=== PATIENT | female | born 1985 | race Caucasian/White ===

== ENCOUNTER → 2016-10-13 | Outpatient (CLI) | payer OTHER ==
--- NOTE | 2016-10-13 20:03 | MR ---
EXAMINATION TYPE: MR lumbar spine wo con DATE OF EXAM: 10/13/2016 7:32 PM COMPARISON: NONE HISTORY: Severe Low Back Pain Pain down both legs mostly on Left Multiplanar, MultiSpin echo imaging of the lumbar spine was performed. L1-L2: Normal disc appearance without desiccation. No herniation, protrusion or disc bulging. No ca nal stenosis is present. Foramina are patent bilaterally. L2-L3: Normal disc appearance without desiccation. No herniation, protrusion or disc bulging. No ca nal stenosis is present. Foramina are patent bilaterally. L3 hemangioma noted. L3-L4: Normal disc appearance without desiccation. No herniation, protrusion or disc bulging. No ca nal stenosis is present. Foramina are patent bilaterally. L4-L5: Normal disc appearance without desiccation. No herniation, protrusion or disc bulging. No ca nal stenosis is present. Foramina are patent bilaterally. L5-S1: Mild disc desiccation. Minimal posterior central disc bulge. No herniation protrusion or centr al stenosis. Foramina are patent bilaterally. Lumbar segments are intact. No paraspinal masses are identified. Conus medullaris has a normal appe arance. IMPRESSION: 1. Minimal disc desiccation and disc bulging at L5-S1.
== END | disposition home or self-care (01) ==
LOC: RADMRIMAIN 18:54
PROVIDERS: ATTEND Internal Medicine
DX: M51.27 Other intervertebral disc displacement, lumbosacral region (principal)
CPT/HCPCS: 72148

== ENCOUNTER 2016-10-22 12:38 | Emergency (ER) | payer OTHER ==
[2016-10-22 12:50] VITALS: BP 141/83; PULSE 79; RESP 18; TEMP 97.9
[2016-10-22] MEDS ORDERED: KETOROLAC 60 MG/2 ML VIAL IM STA (13:01)
--- NOTE | 2016-10-22 13:29 | ED ---
Back Pain HPI - General Chief Complaint: Back Pain/Injury Stated Complaint: Back Pain Time Seen by Provider: 10/22/16 12:53 Source: patient, RN notes reviewed, old records reviewed - History of Present Illness Initial Comments: This is a 31 year old female with CC of acute exacerbation of chronic back pain. She reports she had a MRI 1-2 weeks ago, which told her she has disc changes in L5-S1. She reports she has been taking Tramadol, but it has not helped with the Pain. She reports she has a follow up appointment with a neurologist Dr. Joshua next week. She does not have a pain contract. She denies any falls or anything causing worsening back pain. She denies saddle anesthesias , or peripheral paresthesias. Patient has no other associated symptoms. - Related Data Home Medications Medication Instructions Recorded Confirmed Albuterol Sulfate [Proair Hfa] 2 puff INHALATION RT-Q6H PRN 10/22/16 10/22/16 Ibuprofen [Motrin] 1,000 mg PO DAILY PRN 10/22/16 10/22/16 Methocarbamol [Robaxin] 1,500 mg PO HS PRN 10/22/16 10/22/16 Sertraline [Zoloft] 75 mg PO HS 10/22/16 10/22/16 traMADol HCL [Ultram] 50 mg PO DAILY 10/22/16 10/22/16 Previous Rx's Medication Instructions Recorded Acetaminophen-Codeine 300-30mg 1 tab PO Q6H PRN #20 tablet 10/22/16 [Tylenol #3] Allergies Allergy/AdvReac Type Severity Reaction Status Date / Time Penicillins Allergy Rash/Hives Verified 10/22/16 13:16 Review of Systems ROS Statement: Those systems with pertinent positive or pertinent negative responses have been documented in the HPI. ROS Other: All systems not noted in ROS Statement are negative. Past Medical History Past Medical History: No Reported History Additional Past Medical History / Comment(s): sciatica, BULGING LUMBAR DISC L4 AND L5 History of Any Multi-Drug Resistant Organisms: None Reported Additional Past Surgical History / Comment(s): hemorrhoids Past Psychological History: No Psychological Hx Reported Smoking Status: Current every day smoker Past Alcohol Use History: None Reported Past Drug Use History: None Reported General Exam - General Exam Comments Initial Comments: Well appearing 31 year old male. General appearance: alert, in no apparent distress Head exam: Present: atraumatic, normocephalic, normal inspection Eye exam: Present: normal appearance, PERRL, EOMI. Absent: scleral icterus, conjunctival injection, periorbital swelling ENT exam: Present: normal exam, mucous membranes moist Neck exam: Present: normal inspection. Absent: tenderness, meningismus, lymphadenopathy Respiratory exam: Present: normal lung sounds bilaterally. Absent: respiratory distress, wheezes, rales, rhonchi, stridor Cardiovascular Exam: Present: regular rate, normal rhythm, normal heart sounds. Absent: systolic murmur, diastolic murmur, rubs, gallop, clicks GI/Abdominal exam: Present: soft, normal bowel sounds. Absent: distended, tenderness, guarding, rebound, rigid Extremities exam: Present: normal inspection, full ROM, normal capillary refill. Absent: tenderness, pedal edema, joint swelling, calf tenderness Back exam: Present: normal inspection Neurological exam: Present: alert, oriented X3, CN II-XII intact Psychiatric exam: Present: normal affect, normal mood Skin exam: Present: warm, dry, intact, normal color. Absent: rash Course Vital Signs 10/22/16 12:46 Temperature 97.9 F Pulse Rate 79 Respiratory 18 Rate Blood Pressure 141/83 O2 Sat by Pulse 100 Oximetry Medical Decision Making - Medical Decision Making This is a 31 year old female with CC of acute exacerbation of chronic back pain. She reports she had a MRI 1-2 weeks ago, which told her she has disc changes in L5-S1. She reports she has been taking Tramadol, but it has not helped with the Pain. She reports she has a follow up appointment with a neurologist Dr. Joshua next week. She does not have a pain contract. She denies any falls or anything causing worsening back pain. She denies saddle anesthesias , or peripheral paresthesias. Patient has no other associated symptoms. Patient declines x-rays, and discussed it is unnecessary for them at this time. Patient given IM toradol. She reports she is feeling somewhat better. Patient discharged with short prescription of tylenol 3, and advised to take those with prescription of muscle relaxer at home. Patient agrees with treatment plan and will comply. Disposition Clinical Impression: Acute exacerbation of chronic low back pain Disposition: HOME SELF-CARE Condition: Good Instructions: Acute Low Back Pain (ED) Additional Instructions: Past rest and put ice and heat over the lower back. Take the medications as prescribed. Follow-up with primary care physician as well as your scheduled neurologist appointment. Return to the emergency department if any alarming signs or symptoms occur. Prescriptions: Acetaminophen-Codeine 300-30mg [Tylenol #3] 1 tab PO Q6H PRN #20 tablet PRN Reason: Pain Referrals: Jackson Coronado MD [Primary Care Provider] - 1-2 days Time of Disposition: 13:27
== END 2016-10-22 13:39 | disposition home or self-care (01) ==
LOC: EC 12:38
DX: G89.29 Other chronic pain (principal); M54.5 Low back pain; F17.200 Nicotine dependence, unspecified, uncomplicated; Z79.899 Other long term (current) drug therapy; Z88.0 Allergy status to penicillin
CPT/HCPCS: 99283; 96372; J1885

== ENCOUNTER 2017-02-02 13:38 | Emergency (ER) | payer OTHER ==
[2017-02-02 13:45] VITALS: BP 148/82; PULSE 86; RESP 18; TEMP 97.1
--- NOTE | 2017-02-02 14:06 | ED ---
ENT HPI - General Chief complaint: Dental/Oral Stated complaint: Dental Pain Time Seen by Provider: 02/02/17 13:49 Source: patient, RN notes reviewed Mode of arrival: ambulatory Limitations: no limitations - History of Present Illness Initial comments: This is a 31-year-old female who presents to the emergency department with chief complaint of dental pain. Patient states that she has been experiencing dental pain since the beginning of December. Patient states at that time she was seen at the [facility] where she was prescribed clindamycin 150 mg 3 times a day. Patient states that since last Tuesday she has taken a whole bottle of ibuprofen for the pain. Patient states that she has been dealing with dental pain OR life but does not have dental insurance was unable to see a dentist. Patient states that she has been on clindamycin in the past and it usually resolved her dental pain. Denies fever, chills, chest pain, shortness of breath, abdominal pain, nausea or vomiting, constipation or diarrhea, dysuria or hematuria, numbness or tingling, headache or vision changes. - Related Data Home Medications Medication Instructions Recorded Confirmed Albuterol Sulfate [Proair Hfa] 2 puff INHALATION RT-Q6H PRN 10/22/16 10/22/16 Ibuprofen [Motrin] 1,000 mg PO DAILY PRN 10/22/16 10/22/16 Methocarbamol [Robaxin] 1,500 mg PO HS PRN 10/22/16 10/22/16 Sertraline [Zoloft] 75 mg PO HS 10/22/16 10/22/16 traMADol HCL [Ultram] 50 mg PO DAILY 10/22/16 10/22/16 Previous Rx's Medication Instructions Recorded Acetaminophen-Codeine 300-30mg 1 tab PO Q6H PRN #20 tablet 10/22/16 [Tylenol #3] Acetaminophen-Codeine 300-30mg 1 tab PO Q4H PRN #12 tablet 02/02/17 [Tylenol #3] Clindamycin [Cleocin] 450 mg PO TID #90 cap 02/02/17 Allergies Allergy/AdvReac Type Severity Reaction Status Date / Time Penicillins Allergy Rash/Hives Verified 02/02/17 13:45 Review of Systems ROS Statement: Those systems with pertinent positive or pertinent negative responses have been documented in the HPI. ROS Other: All systems not noted in ROS Statement are negative. Past Medical History Past Medical History: No Reported History Additional Past Medical History / Comment(s): sciatica, BULGING LUMBAR DISC L4 AND L5 History of Any Multi-Drug Resistant Organisms: None Reported Additional Past Surgical History / Comment(s): hemorrhoids Past Psychological History: Depression Smoking Status: Current every day smoker Past Alcohol Use History: None Reported Past Drug Use History: None Reported General Exam - General Exam Comments Initial Comments: General: Awake and alert, well-developed; in no apparent distress. HEENT: Head atraumatic, normocephalic. Pupils are equal, round and reactive to light. Extraocular movements intact. Oropharynx moist without erythema or exudate. Poor dentition with multiple teeth missing. There is tenderness on palpation of upper right gum line where molars #2-3 are missing. Neck: Supple. Normal ROM. Cardiovascular: Regular rate and rhythm. No murmurs, rubs or gallops. Chest symmetrical. Respiratory: Lungs clear to auscultation bilaterally. No wheezes, rales or rhonchi. Normal respiratory effort with no use of accessory muscles. Skin: [place], warm and dry without rashes or lesions. Neurological: Alert and oriented x3. CN II-XII grossly intact. Speech is fluent and answers are appropriate. No focal neuro deficits. Psychiatric: Normal mood and affect. No overt signs of depression or anxiety noted. Limitations: no limitations Course Vital Signs 02/02/17 13:42 Temperature 97.1 F L Pulse Rate 86 Respiratory 18 Rate Blood Pressure 148/82 O2 Sat by Pulse 99 Oximetry Medical Decision Making - Medical Decision Making This is a 31-year-old female who presents with dental pain. Patient states she has been experiencing dental pain her entire life and has had a flare-up since the beginning of December. Patient states that she was previously on clindamycin at the beginning of December and that she was taking a lower dose than normal for her. She'll be discharged home with a prescription of a higher dose clindamycin. She has been taking excessive amounts of ibuprofen so patient also received a prescription for Tylenol with Codeine. She is in no acute distress at this time. She is in agreement to the plan and voices understanding. All questions were answered. Disposition Clinical Impression: Toothache Disposition: HOME SELF-CARE Condition: Good Instructions: Toothache (ED) Additional Instructions: Please take medications as prescribed. Please follow up with primary care provider within 1-2 days. Return to emergency department if symptoms should worsen or any concerns arise. Prescriptions: Acetaminophen-Codeine 300-30mg [Tylenol #3] 1 tab PO Q4H PRN #12 tablet PRN Reason: Pain Clindamycin [Cleocin] 450 mg PO TID #90 cap Referrals: Jackson Coronado MD [Primary Care Provider] - 1-2 days Time of Disposition: 14:18
== END 2017-02-02 14:11 | disposition home or self-care (01) ==
LOC: EC 13:38
DX: K08.89 Other specified disorders of teeth and supporting structures (principal); F32.9 Major depressive disorder, single episode, unspecified; M51.16 Intervertebral disc disorders with radiculopathy, lumbar region; F17.200 Nicotine dependence, unspecified, uncomplicated; Z88.0 Allergy status to penicillin; Z79.891 Long term (current) use of opiate analgesic; Z79.899 Other long term (current) drug therapy
CPT/HCPCS: 99282

== ENCOUNTER → 2017-11-04 | Outpatient (CLI) | payer OTHER ==
--- NOTE | 2017-11-08 12:36 | MM ---
Reason for exam: clinical finding. Last mammogram was performed 6 years and 4 months ago. History: Family history of breast cancer in mother at age 50. Physical Findings: Nurse Summary: Less than 1 cm lump at 5 o'clock in the left breast. [facility] Diagnostic Mammo w CAD LENO Bilateral CC and MLO view(s) were taken. Prior study comparison: July 16, 2011, bilateral mammogram. The breast tissue is heterogeneously dense. This may lower the sensitivity of mammography. There is a mass left upper outer quadrant posterior depth. These results were verbally communicated with the patient and result sheet given to the patient on 11/04/17. ASSESSMENT: Incomplete: need additional imaging evaluation, BI-RAD 0 RECOMMENDATION: Ultrasound of the left breast.
--- NOTE | 2017-11-08 12:47 | USB ---
Reason for exam: additional evaluation requested from abnormal screening. History: Family history of breast cancer in mother at age 50. US Breast Limited LT Left limited breast ultrasound including focal area of concern, retroareolar and axilla demonstrates a 0.3 x 0.2 x 0.2 cm oval mixed lesion at 1 o'clock , a 0.7 x 0.7 x 0.4 cm oval cystic lesion at 2 o'clock and a 0.5 x 0.3 x 0.3 cm oval complex cystic lesion at 3 o'clock, all appear benign. At the 3 o'clock position is a 0..4 x 0.5 x 0.3 cm oval mixed vascular lesion that appears more solid with vascular flow. These results were verbally communicated with the patient and result sheet given to the patient on 11/04/17. ASSESSMENT: Suspicious, BI-RAD 4 RECOMMENDATION: Ultrasound core biopsy of the left breast. Called with mammographic findings and has scheduled an appointment for the patient for12/01/17 at 10:[address] Perez. PRELIMINARY REPORT CALLED AND FAXED TO DR. PEREZ ON 11/04/17.
== END | disposition home or self-care (01) ==
LOC: RADMAMWWP 07:59
PROVIDERS: ATTEND Pediatrics
DX: R92.8 Other abnormal and inconclusive findings on diagnostic imaging of breast (principal); N63.0 Unspecified lump in unspecified breast
CPT/HCPCS: 77066

== ENCOUNTER → 2017-11-16 | Day surgery (SDC) | payer OTHER ==
[2017-11-16 11:35] VITALS: RESP 16; BMI 34.1
[2017-11-16 14:08] VITALS: BP 122/75; PULSE 69; TEMP 98.3
--- NOTE | 2017-11-16 17:10 | USB ---
EXAMINATION TYPE: US biopsy breast VAD LT DATE OF EXAM: 11/16/2017 CLINICAL HISTORY: R92.8 Abnormal Mammogram. TECHNIQUE: Ultrasound guided core biopsy of left breast. COMPARISON: 11/04/2017 FINDINGS: The procedure of ultrasound guided core biopsy was explained to the patient. Benefits, alternatives, and risks were discussed. An informed consent was obtained. Timeout was performed. The patient was placed in supine positioning for imaging and for the procedure. The overlying skin was prepped and draped in usual sterile fashion. Lidocaine buffered with bicarbonate was used as anesthetic into the skin and subcutaneous tissue up to area of concern in the left breast. A dena was made with surgical scalpel. Under ultrasound guidance, a 12-gauge vacuum assisted biopsy gun device was used to obtain 5 core samples. Following this, a biopsy clip was left in biopsy location. The patient tolerated the procedure well without any immediate complication. The patient was kept in the radiology department for short stay after the procedure and then discharged home in stable condition. Post procedure mammogram is obtained. Surgical clip is within the left breast. Discharge instructions were discussed patient. Patient physician for results. IMPRESSION: 1. Successful ultrasound-guided core biopsy left breast 3:00 position lesion. Recommendations: 1. Recommendations are pending pathology results. Pathology Results: Benign BREAST, LEFT, THREE O'CLOCK, CORE BIOPSY: Fibroadenoma/fibroadenomatoid hyperplasia and background fibrocystic changes including cysts, fibrosis and sclerosing adenosis with microcalcifications. Recommendation Follow up mammogram of the left breast in 6 months. TONY
== END ==
LOC: RADUSWWP 11:05
PROVIDERS: ATTEND Surgery
DX: D24.2 Benign neoplasm of left breast (principal); N62 Hypertrophy of breast; N60.12 Diffuse cystic mastopathy of left breast; N60.22 Fibroadenosis of left breast; R92.8 Other abnormal and inconclusive findings on diagnostic imaging of breast; R92.0 Mammographic microcalcification found on diagnostic imaging of breast; Z88.0 Allergy status to penicillin
CPT/HCPCS: 88305; 77065; 19083; A4648; J2001

== ENCOUNTER 2022-02-20 18:10 | Emergency (ER) | payer OTHER ==
[2022-02-20] MEDS ORDERED: KETOROLAC 15 MG/ML 1 ML VIAL IM STA (18:39)
[2022-02-20] MEDS ORDERED: CYCLOBENZAPRINE 10 MG TAB PO STA (18:39)
--- NOTE | 2022-02-20 18:49 | ED ---
Upper Extremity HPI - General Chief Complaint: Extremity Injury, Upper Stated Complaint: Shoulder Pain Time Seen by Provider: 02/20/22 18:28 Source: patient, RN notes reviewed, old records reviewed Mode of arrival: ambulatory Limitations: no limitations - History of Present Illness Initial Comments: This is a well-appearing 36-year-old female that presents to the emergency room with complaints of left shoulder pain radiating down her arm and to the side of her neck. She has had this pain for over a month. She states she woke up with the pain after sleeping on that side about a month ago. She has seen her primary care doctor and was prescribed Ultram and Robaxin for she is out of this medication and needs to make another appointment to get a refill. She has been going to a chiropractor for adjustments that she also has chronic back pain. States that seen her chiropractor yesterday. Patient denies any injuries. Patient has seen Dr. Sams in the past for pain management but will not return to him. MD Complaint: Injury to:: left, shoulder -: month(s) (1) Other Injuries: none Severity scale (1-10): 9 Improves With: none Worsens With: movement of extremity Context: other (woke up with pain a month ago) Treatments Prior to Arrival: other (Tramadol, Robaxin, Motrin, chiropractor yesterday) - Related Data Home Medications Medication Instructions Recorded Confirmed Albuterol Sulfate [Proair Hfa] 2 puff INHALATION RT-Q6H PRN 10/22/16 11/16/17 Ibuprofen [Motrin] 1,000 mg PO DAILY PRN 10/22/16 11/16/17 DULoxetine HCL [Cymbalta] 20 mg PO DAILY 11/11/17 11/16/17 Gabapentin [Neurontin] 300 mg PO DAILY 11/11/17 11/16/17 NIFEdipine [Procardia XL] 30 mg PO DAILY 11/11/17 11/16/17 Previous Rx's Medication Instructions Recorded Cyclobenzaprine [Flexeril] 10 mg PO TID PRN #15 tab 02/20/22 Allergies Allergy/AdvReac Type Severity Reaction Status Date / Time Penicillins Allergy Rash/Hives Verified 02/20/22 18:26 Review of Systems ROS Statement: Those systems with pertinent positive or pertinent negative responses have been documented in the HPI. ROS Other: All systems not noted in ROS Statement are negative. Past Medical History Past Medical History: No Reported History Additional Past Medical History / Comment(s): sciatica, BULGING LUMBAR DISC L4 AND L5, Raynaud syndrome History of Any Multi-Drug Resistant Organisms: None Reported Additional Past Surgical History / Comment(s): hemorrhoids, mole removal from groin- benign Past Anesthesia/Blood Transfusion Reactions: No Reported Reaction Past Psychological History: Anxiety, Depression Smoking Status: Never smoker Past Alcohol Use History: None Reported Past Drug Use History: None Reported General Exam Limitations: no limitations General appearance: alert, in no apparent distress Head exam: Present: atraumatic, normocephalic, normal inspection Eye exam: Absent: scleral icterus, conjunctival injection, periorbital swelling, periorbital tenderness Neck exam: Present: normal inspection, tenderness (Left sternocleidomastoid), full ROM. Absent: meningismus, lymphadenopathy, thyromegaly Respiratory exam: Absent: respiratory distress, accessory muscle use Cardiovascular Exam: Present: regular rate Left Shoulder Exam: Present: full ROM, tenderness, other (Negative Apley scratch test, no pain with supination or pronation). Absent: swelling, deformity, crepitus, dislocation, tenderness over AC joint Upper Arm exam: Present: normal inspection, full ROM. Absent: tenderness Elbow exam: Present: normal inspection, full ROM. Absent: tenderness Forearm Wrist exam: Present: normal inspection, full ROM. Absent: tenderness Vascular: Present: normal capillary refill. Absent: vascular compromise Neurological exam: Present: alert, oriented X3 Psychiatric exam: Present: normal affect, normal mood Skin exam: Present: warm, dry, normal color. Absent: cyanosis, diaphoretic, petechiae, pallor Course Vital Signs 02/20/22 18:23 Temperature 97.9 F Pulse Rate 98 Respiratory 22 Rate Blood Pressure 157/91 O2 Sat by Pulse 97 Oximetry Medical Decision Making - Medical Decision Making Patient presents with left shoulder pain for one month after waking up with pain. Denies any injury. Has been seeing a chiropractor, last visit yesterday. Has seen her primary care doctor who prescribed her tramadol and Robaxin which she has been taking in addition to motrin for chronic back pain. Patient has full range of motion. Denies any fevers. No trauma. History of degenerative disease and sciatica. No pain with abduction. No pain with supination or pronation. Negative Apley scratch test. She was given Flexeril and Toradol in the emergency room. Directed to continue Tylenol or Motrin for her pain. She was written a prescription for Flexeril. I encouraged her to discuss pain management options with her primary care doctor. She was given a referral to orthopedics for shoulder pain. Case discussed with Dr. Betancourt Disposition Clinical Impression: Left shoulder pain Disposition: HOME SELF-CARE Condition: Good Instructions (If sedation given, give patient instructions): Shoulder Pain (ED) Additional Instructions: Continue Tylenol and Motrin for pain. You can also take Flexeril as prescribed. You can also use topical pain medications like icy hot or capsaicin creams. Follow up with orthopedics for continuation of care. Prescriptions: Cyclobenzaprine [Flexeril] 10 mg PO TID PRN #15 tab PRN Reason: Muscle Spasm Is patient prescribed a controlled substance at d/c from ED?: No Referrals: Nonstaff,Physician [Primary Care Provider] - 1-2 days Alok Olivas MD [Medical Doctor] - 1-2 days Time of Disposition: 18:45
[2022-02-20 19:21] VITALS: BP 138/98; PULSE 94; RESP 15; TEMP 97.8
== END 2022-02-20 19:20 | disposition home or self-care (01) ==
LOC: EC 18:10
DX: M25.512 Pain in left shoulder (principal); F41.9 Anxiety disorder, unspecified; F32.A Depression, unspecified; Z88.0 Allergy status to penicillin
CPT/HCPCS: 99283; 96372; J1885

== ENCOUNTER → 2022-04-01 | Outpatient (CLI) | payer OTHER ==
--- NOTE | 2022-04-02 07:20 | XR ---
EXAMINATION TYPE: XR knee complete RT DATE OF EXAM: 04/01/2022 6:19 PM INDICATION: Patient age:Female; 36 years old; Reason for study: M25.561 Pain in Rt Knee; [facility]. COMPARISON: None. TECHNIQUE: The Right knee(s) was examined in 3 projections. Frontal, lateral and oblique. FINDINGS: No evidence of any acute osseous pathology, joint space narrowing, soft tissue swelling, or joint effusion is noted. IMPRESSION: No acute osseous pathology.
--- NOTE | 2022-04-02 07:21 | XR ---
EXAMINATION TYPE: XR cervical spine comp DATE OF EXAM: 04/01/2022 6:19 PM INDICATION: Patient age:Female; 36 years old; Reason for study: M54.2 Cervicalgia; [facility]. COMPARISON: None TECHNIQUE: The cervical spine was imaged in frontal, lateral, bilateral oblique, swimmer's and odonto id projections. FINDINGS: The osseous structures show normal alignment without evidence of an acute fracture. The intervertebra l disk spaces are preserved. Pedicles are intact. Soft tissues are within normal limits. The odonto id appears intact. IMPRESSION: No fracture or dislocation.
== END | disposition home or self-care (01) ==
LOC: RADXRMAIN 16:08
PROVIDERS: ATTEND Family Medicine
DX: M54.2 Cervicalgia (principal); M25.512 Pain in left shoulder; M25.561 Pain in right knee; R20.2 Paresthesia of skin
CPT/HCPCS: 72050

== ENCOUNTER 2022-09-25 10:38 | Emergency (ER) | payer OTHER ==
[2022-09-25 10:53] VITALS: RESP 18; TEMP 98
[2022-09-25] MEDS ORDERED: KETOROLAC 15 MG/ML 1 ML VIAL IM STA (11:12)
[2022-09-25] MEDS ORDERED: ORPHENADRINE 30 MG/ML 2 ML VIAL IM STA (11:12)
--- NOTE | 2022-09-25 11:20 | ED ---
Extremity Problem HPI - General Chief complaint: Extremity Problem,Nontraumatic Stated complaint: Left shoulder pain Time Seen by Provider: 09/25/22 11:03 Source: patient, RN notes reviewed Mode of arrival: ambulatory Limitations: no limitations - History of Present Illness Initial comments: Patient is a 37-year-old female presenting emergency room complaints of left shoulder pain ongoing since December of last year. She reports that she saw her primary care provider regarding this and has had x-rays but no other imaging or referral is completed. She denies any trauma at the time of the pain initiation or since her imaging. These x-rays were completed here at this facility in May of this year. She reports that she is unable to get a hold of her primary care provider to provide her with any medications for the pain which has been intensifying recently. She has taken Aleve earlier today without any relief in pain. She also notes that she ran out of her Effexor and her primary care provider out of town and did not send in a refill prior to leaving town and is requesting a few days of this medication as well. She reports full but p ainful range of motion. She denies any popping or locking redness or swelling in her joint. She denies any other complaints or concerns including any weakness, numbness and tingling, fevers or chills. She has a past medical history in addition to her depression anxiety and chronic shoulder pain of a chronic back pain with L4-L5 herniated disc, sciatica and raynaud's phenomenon. - Related Data Home Medications Medication Instructions Recorded Confirmed Albuterol Sulfate [Proair Hfa] 2 puff INHALATION RT-Q6H PRN 10/22/16 11/16/17 Ibuprofen [Motrin] 1,000 mg PO DAILY PRN 10/22/16 11/16/17 DULoxetine HCL [Cymbalta] 20 mg PO DAILY 11/11/17 11/16/17 Gabapentin [Neurontin] 300 mg PO DAILY 11/11/17 11/16/17 NIFEdipine [Procardia XL] 30 mg PO DAILY 11/11/17 11/16/17 Previous Rx's Medication Instructions Recorded Cyclobenzaprine [Flexeril] 10 mg PO TID PRN #15 tab 02/20/22 Cyclobenzaprine [Flexeril] 10 mg PO TID PRN #15 tab 05/24/22 Ibuprofen [Motrin] 600 mg PO Q8HR PRN #30 tab 05/24/22 Cyclobenzaprine HCl 10 mg PO TID PRN 7 Days #21 tab 09/25/22 Ibuprofen [Motrin] 800 mg PO Q8H PRN 7 Days #21 tab 09/25/22 Venlafaxine HCl [Effexor XR] 225 mg PO DAILY 7 Days #7 tab 09/25/22 Allergies Allergy/AdvReac Type Severity Reaction Status Date / Time Penicillins Allergy Rash/Hives Verified 09/25/22 10:53 Review of Systems ROS Statement: Those systems with pertinent positive or pertinent negative responses have been documented in the HPI. ROS Other: All systems not noted in ROS Statement are negative. Past Medical History Additional Past Medical History / Comment(s): sciatica, BULGING LUMBAR DISC L4 AND L5, Raynaud syndrome History of Any Multi-Drug Resistant Organisms: None Reported Additional Past Surgical History / Comment(s): hemorrhoids, mole removal from groin- benign, L breast biopsy Past Anesthesia/Blood Transfusion Reactions: No Reported Reaction Past Psychological History: Anxiety, Depression Smoking Status: Vaper Past Alcohol Use History: None Reported Past Drug Use History: None Reported General Exam Limitations: no limitations General appearance: alert, in no apparent distress, obese Head exam: Present: atraumatic, normocephalic, normal inspection Eye exam: Present: normal appearance, PERRL, EOMI. Absent: scleral icterus, conjunctival injection, periorbital swelling ENT exam: Present: mucous membranes moist Expanded Mouth exam: Present: normal external inspection Teeth exam: Present: dental caries Neck exam: Present: normal inspection, full ROM. Absent: tenderness Respiratory exam: Absent: respiratory distress, accessory muscle use Cardiovascular Exam: Present: regular rate GI/Abdominal exam: Absent: distended Left Shoulder Exam: Present: tenderness. Absent: full ROM, swelling, abrasion, laceration, ecchymosis, deformity, crepitus, dislocation, tenderness over AC joint Vascular: Absent: vascular compromise Back exam: Present: normal inspection, full ROM Neurological exam: Present: alert, oriented X3, CN II-XII intact Psychiatric exam: Present: normal affect, normal mood Skin exam: Present: warm, dry, intact, normal color. Absent: rash Course Vital Signs 07/08/23 07/08/23 10:51 12:51 Temperature 98 F Pulse Rate 98 73 Respiratory 18 18 Rate Blood Pressure 155/107 143/90 O2 Sat by Pulse 98 97 Oximetry Medical Decision Making - Medical Decision Making Was pt. sent in by a medical professional or institution ([facility], SOFTWARE QUALITY AUTOMATION ENGINEER, urgent care, hospital, or shelter...) When possible be specific @ -No Did you speak to anyone other than the patient for history (EMS, parent, family, police, friend...)? What history was obtained from this source @ -No Did you review nursing and triage notes (agree or disagree)? Why? @ -I reviewed and agree with nursing and triage notes except pain ongoing for 10 months not 2 months; pain since December 2021. Were old charts reviewed (outside hosp., previous admission, EMS record, old EKG, old radiological studies, urgent care reports/EKG's, shelter records)? Report findings @ -Yes, I reviewed imaging of left shoulder completed May 2022 which showed no acute osseous pathology and preserved joint spaces. Differential Diagnosis (chest pain, altered mental status, abdominal pain women, abdominal pain men, vaginal bleeding, weakness, fever, dyspnea, syncope, he adache, dizziness, GI bleed, back pain, seizure, CVA, palpatations, mental health, musculoskeletal)? @ -Differential Musculoskeletal Muscular strain, contusion, ligament sprain, fracture, arthritis, septic arthritis, bursitis, cellulitis, muscle spasm, nerve compression, DVT, arterial occlusion, herpes zoster, electrolyte abnormality, tumor.... This is not meant to be in all inclusive list EKG interpreted by me (3pts min.). @ -None done X-rays interpreted by me (1pt min.). @ -None done CT interpreted by me (1pt min.). @ -None done U/S interpreted by me (1pt. min.). @ -None done What testing was considered but not performed or refused? (CT, X-rays, U/S, labs)? Why? @ -None What meds were considered but not given or refused? Why? @ -None Did you discuss the management of the patient with other professionals (professionals i.e. [facility], SOFTWARE QUALITY AUTOMATION ENGINEER, lab, RT, psych nurse, aids social worker, department store general manager, teacher, radio division officer, rn field case manager)? Give summary @ -No Was smoking cessation discussed for >3mins.? @ -No Was critical care preformed (if so, how long)? @ -No Were there social determinants of health that impacted care today? How? (Homelessness, low income, unemployed, alcoholism, drug addiction, transportation, low edu. Level, literacy, decrease access to med. care, skilled nursing, rehab)? @ -No Was there de-escalation of care discussed even if they declined (Discuss DNR or withdrawal of care, Hospice)? DNR status @ -No What co-morbidities impacted this encounter? (DM, HTN, Smoking, COPD, CAD, Cancer, CVA, ARF, Chemo, Hep., AIDS, mental health diagnosis, sleep apnea, morbid obesity)? @ -Known chronic shoulder pain. Was patient admitted / discharged? Hospital course, mention meds given and route, prescriptions, significant lab abnormalities, going to OR and other pertinent info. @ -37-year-old female presenting with acute on chronic left shoulder pain without any trauma, weakness or radiculopathy. No indication for diagnostic imaging or laboratory studies will give IM Toradol and IM Norflex and monitor response. Pain improved with Toradol and Norflex. Patient reports and able to tolerate oral Toradol; tolerates high-dose ibuprofen well. Will discharge on Motrin 800 along with Flexeril as a muscle relaxer. Also needs a short refill of her Effexor at this time as well due to her provider being unavailable to refill her prescription. She seeks 225 mg capsules and typically takes 175 mg and 1 150 mg capsule. She reports that she has 150 mg capsules available at home will attempt to prescribe 225mg and not not available at her pharmacy will give 75 mg 1 week supply. Advised gentle range of motion as tolerated, application of heat or ice, avoidance of heavy lifting and excessive repetitive motions. Encourage follow-up with primary care provider and orthopedist. Advised no use of other NSAIDs while utilizing Motrin 800. Encouraged use of kinetic tape to the shoulder to help support shoulder movements. Questions and concerns answered. Return parameters to the emergency room discussed. Will discharge home in stable condition with prescription for Motrin and Flexeril to utilize as needed for acute on chronic left shoulder pain advising follow-up with primary care provider and orthopedist. Undiagnosed new problem with uncertain prognosis? @ -No Drug Therapy requiring intensive monitoring for toxicity (Heparin, Nitro, Insulin, Cardizem)? @ -No Were any procedures done? @ -No Diagnosis/symptom? @ -Left shoulder pain Acute, or Chronic, or Acute on Chronic? @ -Acute on chronic Uncomplicated (without systemic symptoms) or Complicated (systemic symptoms)? @ -default Side effects of treatment? @ -No Exacerbation, Progression, or Severe Exacerbation? @ -No Poses a threat to life or bodily function? How? (Chest pain, [place], [place], pneumonia, PE, COPD, DKA, ARF, appy, cholecystitis, CVA, Diverticulitis, Homicidal, Suicidal, threat to staff... and all critical care pts) @ -No Diagnosis/symptom? @ -Encounter for medication refill Acute, or Chronic, or Acute on Chronic? @ -Acute Uncomplicated (without systemic symptoms) or Complicated (systemic symptoms)? @ -Uncomplicated Side effects of treatment? @ -None Exacerbation, Progression, or Severe Exacerbation] @ -No Poses a threat to life or bodily function? @ -No. Case discussed with Dr. Mooney. Disposition Clinical Impression: Left shoulder pain, Encounter for medication refill Disposition: HOME SELF-CARE Condition: Stable Additional Instructions: Utilize ibuprofen prescription and Flexeril prescription for pain and muscle spasms as needed. Do not take other [id number] NSAIDs with prescription strength ibuprofen. Do not drive or operate machinery and see no how oral muscle relaxer will affect you. Please follow-up with orthopedist regarding your chronic left shoulder pain information regarding on-call orthopedist has been provided. Gentle range of motion as tolerated encouraged. Avoid heavy lifting. Use of kinetic tape to the shoulder may help relieve pain. Application of alt ernating heat and ice is recommended. Please return to the Emergency Department if symptoms worsen or any other concerns. Prescriptions: Cyclobenzaprine HCl 10 mg PO TID PRN 7 Days #21 tab PRN Reason: Spasms Venlafaxine HCl [Effexor XR] 225 mg PO DAILY 7 Days #7 tab Ibuprofen [Motrin] 800 mg PO Q8H PRN 7 Days #21 tab PRN Reason: Pain Is patient prescribed a controlled substance at d/c from ED?: No Referrals: Johanne Gray MD [Primary Care Provider] - 1-2 days Ty Rodriguez MD [STAFF PHYSICIAN] - 1-2 days Time of Disposition: 12:31
[2022-09-25 12:55] VITALS: BP 143/90; PULSE 73
== END 2022-09-25 12:57 | disposition home or self-care (01) ==
LOC: EC 10:38
DX: Z76.0 Encounter for issue of repeat prescription (principal); M25.512 Pain in left shoulder; F41.9 Anxiety disorder, unspecified; F32.A Depression, unspecified; F17.290 Nicotine dependence, other tobacco product, uncomplicated; Z88.0 Allergy status to penicillin; Z79.899 Other long term (current) drug therapy
CPT/HCPCS: 99283; 96372 ×2; J2360; J1885

== ENCOUNTER 2023-08-22 11:07 | Emergency (ER) | payer OTHER ==
--- NOTE | 2023-08-22 11:44 | ED ---
ENT HPI - General Chief complaint: Dental/Oral Stated complaint: Dental issue Time Seen by Provider: 08/22/23 11:27 Source: patient, RN notes reviewed Mode of arrival: ambulatory Limitations: no limitations - History of Present Illness Initial comments: 38-year-old female presents emergency department complaint of right-sided dental pain. Patient states started days ago states now swollen more painful she states she is tried [id number] pain medications with no relief. She states that she has poor dentition. Denies any fevers. Patient presented complaints. - Related Data Home Medications Medication Instructions Recorded Confirmed Albuterol Sulfate [Proair Hfa] 2 puff INHALATION RT-Q6H PRN 10/22/16 11/16/17 Ibuprofen [Motrin] 1,000 mg PO DAILY PRN 10/22/16 11/16/17 DULoxetine HCL [Cymbalta] 20 mg PO DAILY 11/11/17 11/16/17 Gabapentin [Neurontin] 300 mg PO DAILY 11/11/17 11/16/17 NIFEdipine [Procardia XL] 30 mg PO DAILY 11/11/17 11/16/17 Previous Rx's Medication Instructions Recorded Cyclobenzaprine [Flexeril] 10 mg PO TID PRN #15 tab 02/20/22 Cyclobenzaprine [Flexeril] 10 mg PO TID PRN #15 tab 05/24/22 Ibuprofen [Motrin] 600 mg PO Q8HR PRN #30 tab 05/24/22 Cyclobenzaprine HCl 10 mg PO TID PRN 7 Days #21 tab 09/25/22 Ibuprofen [Motrin] 800 mg PO Q8H PRN 7 Days #21 tab 09/25/22 Venlafaxine HCl [Effexor XR] 225 mg PO DAILY 7 Days #7 tab 09/25/22 clindamycin HCL 300 mg PO QID #40 cap 08/22/23 Allergies Allergy/AdvReac Type Severity Reaction Status Date / Time Penicillins Allergy Rash/Hives Verified 08/22/23 11:12 Review of Systems ROS Statement: Those systems with pertinent positive or pertinent negative responses have been documented in the HPI. ROS Other: All systems not noted in ROS Statement are negative. Past Medical History Past Medical History: No Reported History Additional Past Medical History / Comment(s): sciatica, BULGING LUMBAR DISC L4 AND L5, Raynaud syndrome History of Any Multi-Drug Resistant Organisms: None Reported Additional Past Surgical History / Comment(s): hemorrhoids, mole removal from groin- benign, L breast biopsy Past Anesthesia/Blood Transfusion Reactions: No Reported Reaction Past Psychological History: Anxiety, Depression Smoking Status: Vaper Past Alcohol Use History: None Reported Past Drug Use History: None Reported General Exam Limitations: no limitations General appearance: alert, in no apparent distress Head exam: Present: atraumatic, normocephalic, normal inspection Eye exam: Present: normal appearance, PERRL, EOMI. Absent: scleral icterus, conjunctival injection, periorbital swelling ENT exam: Present: mucous membranes moist. Absent: normal oropharynx (Edentulous, no drainable abscess right-sided facial swelling) Neck exam: Present: normal inspection, full ROM. Absent: tenderness, meningismus, lymphadenopathy Respiratory exam: Present: normal lung sounds bilaterally. Absent: respiratory distress, wheezes, rales, rhonchi, stridor Cardiovascular Exam: Present: regular rate, normal rhythm, normal heart sounds. Absent: systolic murmur, diastolic murmur, rubs, gallop, clicks Course Vital Signs 08/22/23 11:08 Temperature 97.6 F Pulse Rate 85 Respiratory 18 Rate Blood Pressure 172/115 O2 Sat by Pulse 100 Oximetry Medical Decision Making - Medical Decision Making Was pt. sent in by a medical professional or institution ([facility], PLUGGER MAN, urgent care, hospital, or usp...) When possible be specific @ -No Did you speak to anyone other than the patient for history (EMS, parent, family, police, friend...)? What history was obtained from this source @ -No Did you review nursing and triage notes (agree or disagree)? Why? @ -I reviewed and agree with nursing and triage notes Were old charts reviewed (outside hosp., previous admission, EMS record, old EKG, old radiological studies, urgent care reports/EKG's, usp records)? Report findings @ -No old charts were reviewed Differential Diagnosis (chest pain, altered mental status, abdominal pain women, abdominal pain men, vaginal bleeding, weakness, fever, dyspnea, syncope, headache, dizziness, GI bleed, back pain, seizure, CVA, palpatations, mental health, musculoskeletal)? @ -Dental pain, dental abscess, dental carry dental fracture EKG interpreted by me (3pts min.). @ -None X-rays interpreted by me (1pt min.). @ -None done CT interpreted by me (1pt min.). @ -None done U/S interpreted by me (1pt. min.). @ -None done What testing was considered but not performed or refused? (CT, X-rays, U/S, labs)? Why? @ -None What meds were considered but not given or refused? Why? @ -None Did you discuss the management of the patient with other professionals (professionals i.e. , PA, PLUGGER MAN, lab, RT, psych nurse, web content & social media manager, freight booker, teacher, hydrographical technical officer, registered nurse hh case manager)? Give summary @ -No Was smoking cessation discussed for >3mins.? @ -No Was critical care preformed (if so, how long)? @ -No Were there social determinants of health that impacted care today? How? (Homelessness, low income, unemployed, alcoholism, drug addiction, transportation, low edu. Level, literacy, decrease access to med. care, prison, rehab)? @ -No Was there de-escalation of care discussed even if they declined (Discuss DNR or withdrawal of care, Hospice)? DNR status @ -No What co-morbidities impacted this encounter? (DM, HTN, Smoking, COPD, CAD, Cancer, CVA, ARF, Chemo, Hep., AIDS, mental health diagnosis, sleep apnea, morbid obesity)? @ -None Was patient admitted / discharged? Hospital course, mention meds given and route, prescriptions, significant lab abnormalities, going to OR and other pertinent info. @ -Discharge patient has a right-sided dental infection. Patient started on oral antibiotics analgesics return plans discussed she will follow-up with a dentist. Undiagnosed new problem with uncertain prognosis? @ -No Drug Therapy requiring intensive monitoring for toxicity (Heparin, Nitro, Insulin, Cardizem)? @ -No Were any procedures done? @ -No Diagnosis/symptom? @ -Dental infection Acute, or Chronic, or Acute on Chronic? @ -Acute Uncomplicated (without systemic symptoms) or Complicated (systemic symptoms)? @ -Uncomplicated Side effects of treatment? @ -No Exacerbation, Progression, or Severe Exacerbation? @ -No Poses a threat to life or bodily function? How? (Chest pain, [place], [place], pneumonia, PE, COPD, DKA, ARF, appy, cholecystitis, CVA, Diverticulitis, Homicidal, Suicidal, threat to staff... and all critical care pts) @ -No Disposition Clinical Impression: Dental abscess, Toothache Disposition: HOME SELF-CARE Condition: Stable Instructions (If sedation given, give patient instructions): Dental Abscess (ED) Additional Instructions: Please return to the Emergency Department if symptoms worsen or any other concerns. Prescriptions: clindamycin HCL 300 mg PO QID #40 cap Is patient prescribed a controlled substance at d/c from ED?: No Referrals: None,Stated [Primary Care Provider] - 1-2 days Time of Disposition: 11:44
[2023-08-22] MEDS: ACET/COD 300 MG/30 MG STARTER PACK 6 TAB BTL PO STA (12:15)
[2023-08-22 13:28] VITALS: BP 147/86; PULSE 76; RESP 16; TEMP 97.6
== END 2023-08-22 11:45 | disposition home or self-care (01) ==
LOC: EC 11:07
DX: K04.7 Periapical abscess without sinus (principal); F17.290 Nicotine dependence, other tobacco product, uncomplicated; Z88.0 Allergy status to penicillin
CPT/HCPCS: 99282

== ENCOUNTER 2024-02-19 15:32 | Emergency (ER) | payer OTHER ==
--- NOTE | 2024-02-19 18:52 | XR ---
EXAMINATION TYPE: XR chest 2V DATE OF EXAM: 02/19/2024 6:45 PM COMPARISON: None available. CLINICAL INDICATION: Female, 38 years old with history of cough; [facility] TECHNIQUE: XR chest 2V Frontal and lateral views of the chest. FINDINGS: Lungs/Pleura: There is no evidence of pleural effusion, focal consolidation, or pneumothorax. Pulmonary vascularity: Unremarkable. Heart/mediastinum: Cardiomediastinal silhouette is unremarkable. Musculoskeletal: No acute osseous pathology. Other findings: None IMPRESSION: No acute cardiopulmonary disease/process. [facility], , 02/19/2024 6:50 PM
[2024-02-19 19:37] VITALS: RESP 16; TEMP 97.6
--- NOTE | 2024-02-19 20:01 | ED ---
General Adult HPI - General Chief complaint: Upper Respiratory Infection Stated complaint: congestion/MIRNA Time Seen by Provider: 02/19/24 18:18 Source: patient, RN notes reviewed Mode of arrival: ambulatory Limitations: no limitations - History of Present Illness Initial comments: 38-year-old female presents to the emergency department for evaluation of upper respiratory symptoms. Patient reports it has been going on for 2 weeks. She notes cough, congestion. She denies any recent fever, chills. She does report seeing her primary care provider and being prescribed steroids for this. She states that she has not seen much improvement following this. - Related Data Home Medications Medication Instructions Recorded Confirmed Albuterol Sulfate [Proair Hfa] 2 puff INHALATION RT-Q6H PRN 10/22/16 11/16/17 Ibuprofen [Motrin] 1,000 mg PO DAILY PRN 10/22/16 11/16/17 DULoxetine HCL [Cymbalta] 20 mg PO DAILY 11/11/17 11/16/17 Gabapentin [Neurontin] 300 mg PO DAILY 11/11/17 11/16/17 NIFEdipine [Procardia XL] 30 mg PO DAILY 11/11/17 11/16/17 Previous Rx's Medication Instructions Recorded Cyclobenzaprine [Flexeril] 10 mg PO TID PRN #15 tab 02/20/22 Cyclobenzaprine [Flexeril] 10 mg PO TID PRN #15 tab 05/24/22 Ibuprofen [Motrin] 600 mg PO Q8HR PRN #30 tab 05/24/22 Cyclobenzaprine HCl 10 mg PO TID PRN 7 Days #21 tab 09/25/22 Ibuprofen [Motrin] 800 mg PO Q8H PRN 7 Days #21 tab 09/25/22 Venlafaxine HCl [Effexor XR] 225 mg PO DAILY 7 Days #7 tab 09/25/22 clindamycin HCL 300 mg PO QID #40 cap 08/22/23 guaiFENesin-Coden 100-10MG/5ML 10 ml PO Q6H PRN 3 Days #120 ml 02/19/24 [Robitussin AC] Allergies Allergy/AdvReac Type Severity Reaction Status Date / Time Penicillins Allergy Rash/Hives Verified 02/19/24 16:10 Review of Systems ROS Statement: Those systems with pertinent positive or pertinent negative responses have been documented in the HPI. ROS Other: All systems not noted in ROS Statement are negative. Past Medical History Past Medical History: No Reported History Additional Past Medical History / Comment(s): sciatica, BULGING LUMBAR DISC L4 AND L5, Raynaud syndrome History of Any Multi-Drug Resistant Organisms: None Reported Additional Past Surgical History / Comment(s): hemorrhoids, mole removal from groin- benign, L breast biopsy Past Anesthesia/Blood Transfusion Reactions: No Reported Reaction Past Psychological History: Anxiety, Depression Smoking Status: Vaper Past Alcohol Use History: None Reported Past Drug Use History: None Reported General Exam Limitations: no limitations General appearance: alert, in no apparent distress Head exam: Present: atraumatic, normocephalic, normal inspection Eye exam: Present: normal appearance, PERRL, EOMI. Absent: scleral icterus, conjunctival injection, periorbital swelling ENT exam: Present: normal exam, mucous membranes moist Neck exam: Present: normal inspection. Absent: tenderness, meningismus, lymphadenopathy Respiratory exam: Present: normal lung sounds bilaterally. Absent: respiratory distress, wheezes, rales, rhonchi, stridor Cardiovascular Exam: Present: regular rate, normal rhythm, normal heart sounds. Absent: systolic murmur, diastolic murmur, rubs, gallop, clicks Extremities exam: Present: normal inspection, full ROM, normal capillary refill. Absent: tenderness, pedal edema, joint swelling, calf tenderness Neurological exam: Present: alert, oriented X3 Psychiatric exam: Present: normal affect, normal mood Skin exam: Present: warm, dry, intact, normal color. Absent: rash Course Vital Signs 02/19/24 02/19/24 02/19/24 16:10 19:37 20:12 Temperature 97.8 F 97.6 F 97.6 F Pulse Rate 99 79 92 Respiratory 22 16 16 Rate Blood Pressure 142/90 155/96 153/91 O2 Sat by Pulse 97 99 99 Oximetry Medical Decision Making - Medical Decision Making Was pt. sent in by a medical professional or institution (, PA, DIG[employer] CONTR[employer]S TECHNICAL OFFICER, urgent care, hospital, or senior care...) When possible be specific @ -No Did you speak to anyone other than the patient for history (EMS, parent, family, police, friend...)? What history was obtained from this source @ -No Did you review nursing and triage notes (agree or disagree)? Why? @ -I reviewed and agree with nursing and triage notes Were old charts reviewed (outside hosp., previous admission, EMS record, old EKG, old radiological studies, urgent care reports/EKG's, senior care records)? Report findings @ -No old charts were reviewed Differential Diagnosis (chest pain, altered mental status, abdominal pain women, abdominal pain men, vaginal bleeding, weakness, fever, dyspnea, syncope, headache, dizziness, GI bleed, back pain, seizure, CVA, palpatations, mental health, musculoskeletal)? @ -COVID, influenza, RSV, pneumonia, this list is not all inclusive EKG interpreted by me (3pts min.). @ -None X-rays interpreted by me (1pt min.). @ -Chest x-ray shows no evidence of acute infiltrate CT interpreted by me (1pt min.). @ -None done U/S interpreted by me (1pt. min.). @ -None done What testing was considered but not performed or refused? (CT, X-rays, U/S, labs)? Why? @ -None What meds were considered but not given or refused? Why? @ -None Did you discuss the management of the patient with other professionals (professionals i.e. , PA, D[employer] TECHNICAL OFFICER, lab, RT, psych nurse, social economist, flagstone layer, teacher, program officer, counseling case manager)? Give summary @ -No Was smoking cessation discussed for >3mins.? @ -No Was critical care preformed (if so, how long)? @ -No Were there social determinants of health that impacted care today? How? (Homelessness, low income, unemployed, alcoholism, drug addiction, transportation, low edu. Level, literacy, decrease access to med. care, usp, rehab)? @ -No Was there de-escalation of care discussed even if they declined (Discuss DNR or withdrawal of care, Hospice)? DNR status @ -No What co-morbidities impacted this encounter? (DM, HTN, Smoking, COPD, CAD, Cancer, CVA, ARF, Chemo, Hep., AIDS, mental health diagnosis, sleep apnea, morbid obesity)? @ -None Was patient admitted / discharged? Hospital course, mention meds given and route, prescriptions, significant lab abnormalities, going to OR and other pertinent info. @ -Discharged. Patient presented to the emergency department for evaluation of cough and congestion. Chest x-ray obtained reveals no acute infiltrate. COVID, influenza, RSV negative. Discussed symptomatic treatment at this time. She is understanding agreeable plan. Patient stable for discharge. Case discussed with Dr. Schwarz Undiagnosed new problem with uncertain prognosis? @ -No Drug Therapy requiring intensive monitoring for toxicity (Heparin, Nitro, Insulin, Cardizem)? @ -No Were any procedures done? @ -No Diagnosis/symptom? @ -URI Acute, or Chronic, or Acute on Chronic? @ -Acute Uncomplicated (without systemic symptoms) or Complicated (systemic symptoms)? @ -Uncomplicated Side effects of treatment? @ -No Exacerbation, Progression, or Severe Exacerbation? @ -No Poses a threat to life or bodily function? How? (Chest pain, USA, PR, pneumonia, PE, COPD, DKA, ARF, appy, cholecystitis, CVA, Diverticulitis, Homicidal, Suicidal, threat to staff... and all critical care pts) @ -No - Lab Data Lab Results 02/19/24 Range/Units 18:41 Influenza Type A (PCR) Not Detected (Not Detectd) Influenza Type B (PCR) Not Detected (Not Detectd) RSV (PCR) Not Detected (Not Detectd) SARS-CoV-2 (PCR) Not Detected (Not Detectd) Disposition Clinical Impression: Viral infection Disposition: HOME SELF-CARE Condition: Stable Instructions (If sedation given, give patient instructions): Upper Respiratory Infection (ED) Additional Instructions: Please follow-up with your primary care provider. Return to the emergency department for new or worsening symptoms. Prescriptions: guaiFENesin-Coden 100-10MG/5ML [Robitussin AC] 10 ml PO Q6H PRN 3 Days #120 ml PRN Reason: Cough Is patient prescribed a controlled substance at d/c from ED?: Yes When asked, does pt state using other controlled substances?: No If prescribed controlled substance>3 days was MAPS reviewed?: Prescribed <3 Days Referrals: None,Stated [Primary Care Provider] - 1-2 days
[2024-02-19 20:13] VITALS: BP 153/91; PULSE 92
== END 2024-02-19 20:13 | disposition home or self-care (01) ==
LOC: EC 15:32
DX: J06.9 Acute upper respiratory infection, unspecified (principal); F17.290 Nicotine dependence, other tobacco product, uncomplicated; Z88.0 Allergy status to penicillin
CPT/HCPCS: 71046; 87636; 99285